=== PATIENT | male | born 1990 | race Caucasian/White ===

== ENCOUNTER 2025-06-30 15:51 | Emergency (ER) | payer BC, SELFPAY ==
--- OUTSIDE RECORDS SUMMARY | 2025-06-30 15:59 | XMS_ITS | Clinical Summary ---
Author Organization [facility] Address [address] [place] [address] Phone Care Team Providers Care Critical Care Physician Assistant Name Role Phone Eliazar Pascual MD Primary Care Provider + Allergies No known active allergies Medications omeprazole (PRILOSEC) [address] capsule Take one capsule (10 mg total) by mouth 2 (two) times a day Active Active Problems No known active problems Family History Medical History Relation Name Comments No Known Problems Father No Known Problems Mother Relation Name Status Comments Father Mother Social History Tobacco Use Types Packs/Day Years Used Date Smoking Tobacco: Never Smokeless Tobacco: Current Chew Tobacco Cessation:Ready to Q uit: Not Asked; Counseling Given: Not Answered Comments:3/4 daily for 10 years Alcohol Use Standard Drinks/Week Comments Not Currently 0 (1 standard drink = 0.6 oz pur e alcohol) Intimate Partner Safety Answer Date Rec orded Intimate Partner Safety Not At Risk 01/24/20 24 Intimate Partner Safety Not At Risk 01/24/20 24 Intimate Partner Safety Not At Risk 01/24/20 24 Intimate Partner Safety Not At Risk 01/24/20 24 Intimate Partner Safety Not on file 01/24/20 24 Sexually Active Control Partners Comments Yes Condom Female Sex and Gender Information Value Date Recorded Sex Assigned at Not on file Legal Sex Male 3:36 PM [employer] Gender Identity Not on file Sexual Orientation Not on file Last Filed Vital Signs Vital Sign Reading Time Taken Comments Blood Pressure 122/86 07/28/2024 8:59 AM CDT Pulse 107 07/28/2024 8:59 AM CDT Temperature 37.1 C (98.8 F) 07/28/2024 8:59 AM CDT Respiratory Rate 16 03/25/2023 8:32 AM CDT Oxygen Saturation 98% 07/28/2024 8:59 AM CDT Inhaled Oxygen Concentration - - Weight 77.6 kg (171 lb) 07/28/2024 8:59 AM CDT Height 174 cm (5' 8.5 ) 04/19/2021 10:20 AM CDT Body Mass Index 25.62 04/19/2021 10:20 AM CDT Plan of Treatment Health Maintenance Due Date Last Done Comments Annual Depression Screening 2000 DTap/Tdap/Td Vaccines (6 - Tdap) 2000 07/03/1995, 04/15/1991, 10/15/1990, Additional history exists Annual Physical 2007 Hepatitis C Antibody Screen 2007 Influenza Vaccine 07/26/2025 09/01/2012 Insurance [facility] P Care Teams Critical Care Physician Assistant Relationship Specialty Start Date End Date Eliazar Pascual MD [facility] [place] [id number] PCP - General Emergency Medicine 06/09/18
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
[2025-06-30 16:17] VITALS: BP 151/93; PULSE 80; RESP 16; TEMP 36.6; O2SAT 98; BMI 24.3
--- NOTE | 2025-06-30 16:48 | ED_ITS ---
HPI - Male Genitourinary 2 General: Chief complaint: Urogenital-Male Stated complaint: Kiddney Pain R side Time Seen by Provider: 06/30/25 16:40 Source: patient Mode of arrival: ambulatory Limitations: no limitations History of Present Illness: 34-year-old male states that he had sudd en onset of right sided flank pain at 1 PM. States pain has been sharp in nature and severe rates pain a 9 out of 10 he has had vomiting with the pain. He states he had a kidney stone in the past and this feels similar he states he feels like he has urge to urinate denies any abdominal pain denies any worse or improving factors Associated symptoms: Reports nausea and vomiting; Deny dysuria Related Data Previous Rx's ?Medication ?Instructions ?Recorded hydrocodone 5 mg-acetaminophen 325 1 tab PO Q6H PRN pa in #14 tabs 06/30/25 mg tablet ondansetron 4 mg disintegrating 4 mg PO Q6H PRN nausea and 06/30/25 tablet vomiting #14 tabs Allergies Allergy/AdvReac Type Severity Reaction Status Date / Time No Known Allergies Allergy Verified 06/30/25 16:20 Review of Systems 2 Const: Denies: fever(s), chills, body aches or change in appetite ENMT: Denies: throat pain or dental pain Card: Denies: chest pain Resp: Denies: dyspnea GI: Reports: nausea and vomiting; Denies: abdominal pain or diarrhea : Reports: flank pain; Denies: dysuria Musc: Denies: neck pain or back pain Skin/Breast: Denies: rash Neuro: Denies: headache(s) Psych: Denies: depression Kelechi/Lymph: Denies: easy bruising All/Imm: Denies: urticaria Physical Exam 2 Const: COMMON NORMALS: no acute distress, patient oriented x3 and healthy appearing HENMT: COMMON NORMALS: normocephalic and atraumatic HEAD & SCALP: n ormocephalic and atraumatic Eye: COMMON NORMALS: conjunctivae normal CONJUNCTIVA: Yes conjunctivae normal Neck/C-Spine: COMMON NORMALS: full ROM and supple Chest: COMMONS NORMALS: normal inspection of the chest Resp: COMMON NORMALS: normal respiratory effort Cardio: COMMON NORMALS: regular rate, regular rhythm and No murmurs present (Cardio) RATE: regular rate RHYTHM: regular rhythm GI: COMMON NORMALS: Normal to inspection, nondistended, normoactive bowel sounds present, Soft to palpation, non-tender and no masses PALPATION: Yes Soft to palpation Extremity: COMMON NORMALS: normal to inspection and full ROM Neuro: COMMON NORMALS: patient oriented x3, moves all extremities and no focal motor deficits Psych: COMMON NORMALS: mental status grossly normal, Normal thought process present and cooperative THOUGHT PROCESS: Normal thought process present Skin: COMMON NORMALS: no rashes or lesions noted and no wounds GENERAL SKIN EXAM: no rashes or lesions noted Course 2 Vital Signs: Vital signs: Vital Signs Temperature 97.8 F 06/30/25 16:17 Pulse Rate 80 06/30/25 16:17 Respiratory Rate 16 06/30/25 16:17 Blood Pressure 151/93 06/30/25 16:17 Pulse Oximetry 98 06/30/25 16:17 MDM - Male Medical Decision Making Patient presents here with flank pain does have a kidney stone his pain is much improved here he stable for discharge follow-up PCP return if worsening. Medical Records I reviewed the patient's medical records. Lab Data I reviewed the patient's lab results. 06/30/25 16:57 06/30/25 16:57 Radiology Impressions Abdomen/Pelvis CT 06/30/25 16:48 IMPRESSION: Mild right hydronephrosis and hydroureter with 2 mm obstructing stone within right ureterovesicular junction. Mild adjacent inflammatory changes. COMMENTS: Consistent with the [place] [employer]'s Incidental Findings Committee white paper (J Am Lara Radiol 2018): Any incidental renal lesion less than 1 cm or classified as too small to characterize, or any incidental cystic renal lesion characterized as simple-appearing, is likely benign. No follow-up imaging is recommended for these lesions per consensus recommendations based on imaging criteria. Laboratory Results WBC 12.01 10^3/uL (3.29-11.43) H 06/30/25 16:57 RBC 5.24 10^6/uL (3.85-5.65) 06/30/25 16:57 Hgb 15.10 g/dL (11.27-16.99) 06/30/25 16:57 Hct 42.5 % (37-53) 06/30/25 16:57 MCV 81.1 fl (82-101) L 06/30/25 16:57 MCH 28.8 pg (27-33) 06/30/25 16:57 MCHC 35.5 g/dL (30-55) 06/30/25 16:57 RDW 12.5 % (12.1-15.1) 06/30/25 16:57 Plt Count 192 10^3/cmm (157-399) 06/30/25 16:57 MPV 11.0 fL (7.4-10.4) H 06/30/25 16:57 Neut % (Auto) 82.6 % 06/30/25 16:57 Lymph % (Auto) 11.3 % 06/30/25 16:57 [place] % (Auto) 5.2 % 06/30/25 16:57 Eos % (Auto) 0.2 % 06/30/25 16:57 Baso % (Auto) 0.3 % 06/30/25 16:57 Neut # (Auto) 9.91 10^3/uL (1.8-7.7) H 06/30/25 16:57 Lymph # (Auto) 1.4 10^3/uL (0.8-4.8) 06/30/25 16:57 [place] # (Auto) 0.6 10^3/uL (0.2-0.9) 06/30/25 16:57 Eos # (Auto) 0.0 10^3/uL (0.0-0.8) 06/30/25 16:57 Baso # (Auto) 0.0 10^3/uL (0.0-0.1) 06/30/25 16:57 Nucleated RBC % (auto) 0 % 06/30/25 16:57 Nucleated RBCs # 0.0 /100WBC 06/30/25 16:57 Sodium 142 mmol/L (136-145) 06/30/25 16:57 Potassium 3.8 mmol/L (3.5-5.1) 06/30/25 16:57 Chloride 103 mmol/L (98-107) 06/30/25 16:57 Carbon Dioxide 26 mmol/L (22-29) 06/30/25 16:57 Anion Gap 16.8 (5-19) 06/30/25 16:57 BUN 11 mg/dL (6-20) 06/30/25 16:57 Creatinine 1.2 mg/dL (0.7-1.2) 06/30/25 16:57 GFR Calculation 68.9 mL/min (90-130) L 06/30/25 16:57 Glucose 125 mg/dL (65-115) H 06/30/25 16:57 Calculated Osmolality 295 mOsm/kg (285-295) 06/30/25 16:57 Calcium 9.8 mg/dL (8.5-10.5) 06/30/25 16:57 Total Bilirubin 0.6 mg/dL (0.15-1.2) 06/30/25 16:57 AST 19 U/L (0-40) 06/30/25 16:57 ALT 17 U/L (0-41) 06/30/25 16:57 Alkaline Phosphatase 51 U/L (40-130) 06/30/25 16:57 Total Protein 7.6 g/dL (6.6-8.7) 06/30/25 16:57 Albumin 5.1 g/dL (3.5-5.2) 06/30/25 16:57 Globulin 2.5 g/dL (1.3-4.6) 06/30/25 16:57 Lipase 43 U/L (13-60) 06/30/25 16:57 Urine Color Yellow (Yellow) 06/30/25 18:01 Urine Appearance Cloudy (CLEAR) A 06/30/25 18: Urine pH 5.0 (5-7) 06/30/25 18:01 Ur Specific [place] 1.025 (1.005-1.030) 06/30/25 18:01 Urine Protein Trace (Negative) A 06/30/25 18: Urine Glucose (UA) Negative (Normal) 06/30/25 18:01 Urine Ketones Trace (Negative) 06/30/25 18:01 Urine Blood 3+ (Negative) A 06/30/25 18: Urine Nitrate Negative (Negative) 06/30/25 18: Urine Bilirubin Negative (Negative) 06/30/25 18: Urine Urobilinogen 1.0 mg/dL (Negative) 06/30/25 18:01 Ur Leukocyte Esterase Negative (Negative) 06/30/25 18: Urine RBC 21-50 /hpf (0-2) H 06/30/25 18:01 Urine WBC 0-5 /hpf (0-5) 06/30/25 18:01 Ur Squamous Epith Cells 0-5 /hpf (0-5) 06/30/25 18:01 Amorphous Sediment Not Reportable 06/30/25 18:01 Urine Bacteria None seen /hpf (NONE) 06/30/25 18:01 Hyaline Casts 2.46 /lpf 06/30/25 18:01 All radiology interpretation(s) finalized by discharge Discharge Plan Discharge Patient Disposition: Home Clinical Impression: Kidney stone Condition: Stable Prescriptions: New hydrocodone-acetaminophen 5-325 mg tablet 1 tab PO Q6H PRN (Reason: pain) Qty: 14 0RF ondansetron 4 mg tablet,disintegrating 4 mg PO Q6H PRN (Reason: nausea and vomiting) Qty: 14 0RF Discharge Orders: Discharge ED (Routine); Ordered 06/30/25 Ordered By: Ellyn Varela Discharge Diet: Advance as tolerated Discharge Activity: Resume usual activity Patient Instructions: Kidney Stones (ED), Opioid Safety Print Language: Serbian Coding Level of Care Code ED Equity Director for Feliciano Olivares
--- NOTE | 2025-06-30 16:48 | CTR_ITS ---
PROCEDURE INFORMATION: Exam: CT Abdomen And Pelvis Without Contrast Exam date and time: 06/30/2025 5:08 PM Age: 34 years old Clinical indication: Abdominal pain; Flank; Right; Additional info: R flank pain TECHNIQUE: Imaging protocol: Computed tomography of the abdomen and pelvis without contrast. Radiation optimization: All CT scans at this facility use at least one of these dose optimization techniques: automated exposure control; mA and/or kV adjustment per patient size (includes targeted exams where dose is matched to clinical indication); or iterative reconstruction. COMPARISON: No relevant prior studies available. RADIATION DOSE METRICS: Total DLP (mGy-cm): 450.63 FINDINGS: Lungs: Unremarkable. Liver: Normal. No mass. Gallbladder and biliary ducts: Normal. No calcified stones. No ductal dilation. Pancreas: Normal. No ductal dilation. Spleen: Normal. No splenomegaly. Adrenal glands: Normal. No mass. Kidneys and ureters: Simple appearing 2.0 cm left renal cyst. No further imaging follow-up is required. Punctate nonobstructing bilateral renal calculi. There is mild right hydronephrosis and hydroureter with 2 mm stone (3/187) within right ureterovesicular junction. Stomach and bowel: Unremarkable. No obstruction. No mucosal thickening. Appendix: No evidence of appendicitis. Intraperitoneal space: Unremarkable. No free air. No significant fluid collection. Vasculature: Unremarkable. No abdominal aortic aneurysm. Lymph nodes: Unremarkable. No enlarged lymph nodes. Urinary bladder: Unremarkable as visualized. Reproductive: Unremarkable as visualized. Bones/joints: Unremarkable. No acute fracture. Soft tissues: Unremarkable. CT/CT kidney stone [id number] IMPRESSION: Mild right hydronephrosis and hydroureter with 2 mm obstructing stone within right ureterovesicular junction. Mild adjacent inflammatory changes. COMMENTS: Consistent with the [place] [employer]'s Incidental Findings Committee white paper (J Am Lara Radiol 2018): Any incidental renal lesion less than 1 cm or classified as too small to characterize, or any incidental cystic renal lesion characterized as simple-appearing, is likely benign. No follow-up imaging is recommended for these lesions per consensus recommendations based on imaging criteria.
[2025-06-30 17:04] LABS: Hematocrit 42.5 % (37-53); Hemoglobin 15.10 g/dL (11.27-16.99); Mean Corpuscular HGB Conc 35.5 g/dL (30-55); Mean Corpuscular Hemoglobin 28.8 pg (27-33); Mean Corpuscular Volume 81.1 fl (82-101); Nucleated Red Blood Cells % 0 %; Platelet Count 192 10^3/cmm (157-399); Red Blood Count 5.24 10^6/uL (3.85-5.65); White Blood Count 12.01 10^3/uL (3.29-11.43)
[2025-06-30] MEDS: ondansetron 2 mg/ML SDV 2 mL 4 MG IVP (17:08)
[2025-06-30] MEDS: HYDROmorphone 0.5 MG/0.5 ML INJ IVP (17:08)
[2025-06-30 17:24] LABS: Alanine Aminotransferase 17 U/L (0-41); Albumin Level 5.1 g/dL (3.5-5.2); Alkaline Phosphatase 51 U/L (40-130); Anion Gap 16.8 (5-19); Aspartate Amino Transferase 19 U/L (0-40); Blood Urea Nitrogen 11 mg/dL (6-20); Calcium 9.8 mg/dL (8.5-10.5); Carbon Dioxide 26 mmol/L (22-29); Chloride 103 mmol/L (98-107); Creatinine Clr Calc Pharmacy 87.9341; Globulin 2.5 g/dL (1.3-4.6); Glucose 125 mg/dL (65-115); Lipase 43 U/L (13-60); Osmolality Calculated 295 mOsm/kg (285-295); Potassium 3.8 mmol/L (3.5-5.1); Sodium 142 mmol/L (136-145); Total Protein 7.6 g/dL (6.6-8.7)
[2025-06-30 18:14] LABS: Glucose Urine UA Negative (Normal); Nitrate Urine Negative (Negative); Specific Gravity, Urine 1.025 (1.005-1.030)
[2025-06-30 18:19] LABS: Add Urine Microscopic? YES
== END 2025-06-30 18:51 | disposition home or self-care (01) ==
PROVIDERS: Emergency Provider Emergency Medicine
DX: N20.0 Calculus of kidney (principal)
CPT/HCPCS: 74176; 80053; 81001; 83690; 85025; 87086; 96361; 96374; 96375; 99285; J1171; J1885; J2405; J7030